=== PATIENT | male | born 1940 | race Caucasian/White ===

== ENCOUNTER 2018-10-24 08:16 | Emergency (ER) | payer MEDICARE ==
[2018-10-24] MEDS ORDERED: Diphtheria/Tetanus Toxoids,Adult (Td) 0.5 ML SDV IM ONE (08:34)
--- NOTE | 2018-10-24 09:05 | EDM.PDOC ---
ED HPI GENERAL MEDICAL PROBLEM - General Stated Complaint: LACERATION FINGER Time Seen by Provider: 10/24/18 08:30 Source of Information: Reports: Patient History Limitations: Reports: No Limitations - History of Present Illness INITIAL COMMENTS - FREE TEXT/NARRATIVE: According to patient, he was flaying fish last evening and accidentally the knife hit his left thumb and and sustained a small laceration at the base of the nail, which was bleeding. Pt cleaned the wound and applied and pressure dressing. He is in here today as he is not sure of his tetanus shot and also want to have the wound check. No swelling of the thumb. No pain in the thumb. No bleeding. He claims the thumb throbs if he hangs his left hand down. No other complaints. Onset Date: 10/23/18 Onset Time: 18:00 Location: Reports: Upper Extremity, Left Quality: Reports: Ache Severity: Mild Associated Symptoms: Denies: Confusion, Chest Pain, Cough, Diaphoresis, Fever/ Chills, Headaches, Nausea/Vomiting, Rash, Seizure, Shortness of Breath, Weakness - Related Data Allergies Allergy/AdvReac Type Severity Reaction Status Date / Time No Known Allergies Allergy Verified 10/24/18 08:34 ED ROS GENERAL - Review of Systems Review Of Systems: See Below Constitutional: Denies: Fever, Chills HEENT: Denies: Ear Pain, Rhinitis, Throat Pain Respiratory: Denies: Cough, Sputum Cardiovascular: Denies: Chest Pain, Lightheadedness GI/Abdominal: Denies: Abdominal Pain, Nausea, Vomiting : Denies: Discharge, Dysuria, Flank Pain, Frequency Musculoskeletal: Denies: Joint Pain, Joint Swelling Skin: Reports: Wound. Denies: Bruising, Pruritis, Rash ED EXAM, GENERAL - Physical Exam Exam: See Below Exam Limited By: No Limitations General Appearance: Alert, WD/WN, No Apparent Distress Eye Exam: Bilateral Eye: EOMI, PERRL Ears: Normal External Exam, Normal Canal, Hearing Grossly Normal, Normal TMs Ear Exam: Bilateral Ear: Auricle Normal, Canal Normal, TM normal Nose: Normal Inspection, Normal Mucosa, No Blood Throat/Mouth: Normal Inspection, Normal Lips, Normal Teeth, Normal Gums, Normal Oropharynx, Normal Voice, No Airway Compromise Head: Atraumatic, Normocephalic Neck: Normal Inspection, Supple, Non-Tender, Full Range of Motion Respiratory/Chest: No Respiratory Distress, Lungs Clear, Normal Breath Sounds, No Accessory Muscle Use, Chest Non-Tender Cardiovascular: Normal Peripheral Pulses, Regular Rate, Rhythm, No Edema, No Gallop, No JVD, No Murmur, No Rub Extremities: Normal Range of Motion, No Pedal Edema, Normal Capillary Refill, Other (left thumb: there is a small laceration at the base of the finger nail plate. It is hemostatic. minimal oozing from the cut. nontender. N signs of infection.) Course - Vital Signs Text/Narrative:: Pt reassured that the flap is very small and in place. I did clean the wound and aplly pressure dressing. Advised patient to keep the thumb elevated and avoid wetting the wound. Can keep the dressing on for 48 hrs. Then simple dressing until the wound heals. he did receive tetanus toxoid injection today. Wound care and infection precautions discussed. Followup with his Primary care provider in 2-3 days for wound check. - Orders/Labs/Meds Orders: Active Orders 24 hr Category Date Time Status Vaccines to be Administered [RC] PER UNIT ROUTINE Care 10/24/18 08:34 Active Meds: Medications Discontinued Medications Generic Name Dose Route Start Last Admin Trade Name Freq PRN Reason Stop Dose Admin Tetanus/Diphtheria Toxoids 0.5 ml 10/24/18 08:34 10/24/18 08:35 Tenivac IM 10/24/18 08:35 0.5 ml .ONCE ONE Administration Departure - Departure Time of Disposition: 08:45 Disposition: Home, Self-Care 01 Condition: Fair Clinical Impression: Superficial laceration of hand - Discharge Information *PRESCRIPTION DRUG MONITORING PROGRAM REVIEWED*: Not Applicable *COPY OF PRESCRIPTION DRUG MONITORING REPORT IN PATIENT NAJMA: Not Applicable Instructions: VIS, Tetanus, Diphtheria (Td); Tetanus, Diphtheria, Pertussis ( Tdap) - CDC, Laceration Care, Adult Referrals: PCP,None [Primary Care Provider] - Additional Instructions: Keep drsg CDI for 48 hous do not change. Keep LUE above heart. Return to clinic or ED if increasaed bleeding, redness or pain. - Problem List & Annotations (1) Superficial laceration of hand SNOMED Code(s): 093865824 Code(s): S61.419A - LACERATION WITHOUT FOREIGN BODY OF UNSP HAND, INIT ENCNTR Status: Acute - Problem List Review Problem List Initiated/Reviewed/Updated: Yes - My Orders Last 24 Hours: My Active Orders 10/24/18 08:34 Vaccines to be Administered [RC] PER UNIT ROUTINE - Assessment/Plan Last 24 Hours: My Active Orders 10/24/18 08:34 Vaccines to be Administered [RC] PER UNIT ROUTINE Assessment:: Superficial left thumb laceration Plan: Pt reassured that the flap is very small and in place. I did clean the wound and aplly pressure dressing. Advised patient to keep the thumb elevated and avoid wetting the wound. Can keep the dressing on for 48 hrs. Then simple dressing until the wound heals. he did receive tetanus toxoid injection today. Wound care and infection precautions discussed. Followup with his Primary care provider in 2-3 days for wound check.
== END 2018-10-24 08:46 | disposition home or self-care (01) ==
LOC: LB.ED 08:16
DX: S61.012A Laceration without foreign body of left thumb without damage to nail, initial encounter (principal); Z23 Encounter for immunization; W26.0XXA Contact with knife, initial encounter
CPT/HCPCS: 90471; 90714; 99282